=== PATIENT | male | born 1960 | race Caucasian/White ===

== ENCOUNTER 2016-08-09 16:30 | Emergency (ER) | payer BC ==
[2016-08-09 16:52] VITALS: TEMP 99.6
[2016-08-09] MEDS: SODIUM CHLORIDE 0.9% 1000ML 1,000 ML IV SCH ×2 (17:45→18:31)
[2016-08-09] MEDS ORDERED: OLANZAPINE 2.5 MG TAB ONE (17:47)
[2016-08-09] MEDS ORDERED: OLANZAPINE 2.5 MG TAB PO ONE (17:48)
[2016-08-09 18:06] LABS: ALBUMIN 3.8 gm/dl (3.4-5.0); BASOPHILS % (AUTO) 1 % (0-3); CALCIUM 8.6 mg/dl (8.5-10.1); EOSINOPHILS % (AUTO) 1 % (0-9); HEMATOCRIT 49 % (39-53); MEAN CORPUSCULAR HGB CONC 34.5 gm/dl (32.0-36.0); MEAN CORPUSCULAR VOLUME 86 fL (80-100); MONOCYTES % (AUTO) 6.5 % (0-12); NEUTROPHILS % (AUTO) 80.9 % (37-80); POTASSIUM 3.6 mMol/L (3.5-5.1); THYROID STIMULATING HORMONE 0.528 uIU/ml (0.358-3.740)
[2016-08-09 18:20] LABS: APPEARANCE,URINE Clear; BILIRUBIN,URINE 1+ (NEGATIVE); COLOR,URINE Dark yellow; GLUCOSE, URINE (UA) NEGATIVE (NEGATIVE); KETONES,URINE 2+ (NEGATIVE); LEUKOCYTE ESTERASE ,URINE NEGATIVE (NEGATIVE); NITRATE,URINE NEGATIVE (NEGATIVE); OCCULT BLOOD,URINE TRACE INTACT (NEG-TRACE)
[2016-08-09 18:28] LABS: AMPHETAMINES NEGATIVE (NEGATIVE); ICTOTEST,URINE NEGATIVE (NEGATIVE); METHADONE NEGATIVE (NEGATIVE); OPIATES(OP13) NEGATIVE (NEGATIVE); OXYCODONE(OXY) NEGATIVE (NEGATIVE); PROPOXYPHENE(PPX) NEGATIVE (NEGATIVE); RBC,URINE NEG (0-3AV/HPF); TRICYCLIC ANTIDEPRESSANTS NEGATIVE (NEGATIVE); WBC,URINE 0-2 (0-5AV/HPF)
[2016-08-09 19:05] VITALS: O2SAT 97
[2016-08-09 21:52] VITALS: BP 133/56; PULSE 68; RESP 14
== END 2016-08-09 22:25 | disposition short-term general hospital (02) ==
LOC: ED 16:30
DX: F29 Unspecified psychosis not due to a substance or known physiological condition (principal)
CPT/HCPCS: 36415; 80053; 80305; 80307; 81001; 84443; 85025; 96365; 96366; 99284; 99285

== ENCOUNTER 2018-06-04 08:07 | Day surgery (SDC) | payer BC ==
[2018-06-04] MEDS ORDERED: LIDOCAINE HCL 1% MPF 30 SOL ONE (08:56)
[2018-06-04] MEDS ORDERED: PROPOFOL 500 MG/50 ML EMU IV ONE (08:56)
[2018-06-04 10:45] VITALS: BP 129/84; PULSE 64; RESP 18; TEMP 97.2; O2SAT 97
== END 2018-06-04 11:20 | disposition home or self-care (01) ==
LOC: SURG 08:07
PROVIDERS: ATTEND Surgery
DX: Z12.11 Encounter for screening for malignant neoplasm of colon (principal); Z80.0 Family history of malignant neoplasm of digestive organs; D12.8 Benign neoplasm of rectum; K57.32 Diverticulitis of large intestine without perforation or abscess without bleeding
CPT/HCPCS: 99001; J2001; J2704